=== PATIENT | female | born 1990 | race Hispanic/Latino ===

== ENCOUNTER → 2019-02-26 | Day surgery (SDC) | payer OTHER ==
[2019-02-24 11:44] LABS: ALANINE AMINOTRANSFERASE 12 IU/L (0-55); ALBUMIN 4.1 g/dL (3.5-5.0); ALBUMIN/GLOBULIN RATIO 1.2 (0.8-2.0); ALKALINE PHOSPHATASE 73 IU/L (40-150); ANION GAP 11.8 mmol/L (8-16); BLOOD UREA NITROGEN 14 mg/dL (7-26); BUN/CREATININE RATIO 20 (6-25); CALCIUM 9.6 mg/dL (8.4-10.2); CARBON DIOXIDE 28 mmol/L (22-29); CHLORIDE 103 mmol/L (98-107); CREATININE, SERUM 0.71 mg/dL (0.57-1.11); EST GLOMERULAR FILTRATION RATE > 60 ML/MIN (60-); GLUCOSE 87 mg/dL (74-118); POTASSIUM 3.8 mmol/L (3.5-5.1); SODIUM 139 mmol/L (136-145)
[~2019-02-26] MED LIST: ACETAMINOPHEN 1000 MG/100 ML IV ONE; BUPIVACAINE 0.5%/EPI 30 ML SDV INJ ONE; BUPIVACAINE HCL 0.5% INJ 30 ML VIAL INJ ONE; CEFAZOLIN SOD 1 GM/NS 50ML 100 ML IV ONE; DEXAMETHASONE SOD PHOS INJ 4 MG/ML VIAL ONE; EPHEDRINE SULFATE INJ 50 MG/ML VIAL ONE; FENTANYL CITRATE/PF 100MCG/2 ML INJ ONE; GLYCOPYRROLATE INJ 1MG/ 5 ML SYR ONE; HAIR, SKIN & N1 EAC1 PO; HYDROCODONE/APAP 7.5MG-325MG 1 EA TAB ONE; HYDROMORPHONE 2MG/ML 2 MG/ML ML ONE; IBUPROFEN200 MG PO; KETOROLAC TROMETHAMINE 30 MG/ML VIAL ONE; METOCLOPRAMIDE HCL 10 MG/2ML VIAL ONE; MIDAZOLAM HCL 2 MG/2 ML VIAL ONE; NEOSTIGMINE 5 MG/5ML SYR ONE; NORETHINDRONE0.35 MG PO; ONDANSETRON HCL INJ 2MG/ML 2ML 2 MG/ML VIAL ONE; PROMETHAZINE HCL (IM) 25 MG/ML VIAL ONE; PROPOFOL IV EMULSION 10 MG/ML 20 ML VIAL ONE; ROCURONIUM BROMIDE 10 MG/ML 5ML VIAL ONE; SEVOFLURANE INHAL SOLN 250 ML PEN BTL ONE; prenatal gummies PO
--- OUTSIDE RECORDS SUMMARY | 2019-02-26 06:03 | XMS REPORT ---
Author [facility] Address Unknown Phone Unavailable Care Team Providers Care Manager Adult Name Role Phone Unavailable Unavailable Payers Payer Name Policy Type Policy Number Effective Date Expiration Date Problems This patient has no known problems. Allergies, Adverse Reactions, Alerts Allergy Name Allergy Type Status Severity Reaction(s) Onset Date Inactive Date Treating Clinician Comments No Known Allergies DA Active U 2017-07-02 00:00:00 Medications This patient has no known medications. Results Test Description Test Time Test Comments Text Results Atomic Results Result Comments SURGICAL SPECIMENS 2018-11-18 07:56:00 RUN DATE: 11/18/18 [facility] *LIVE* PAGE 1 RUN TIME: 968 Specimen Inquiry RUN USER: INTERFACE PATIENT: YOAV BURNS LOC: G.LDU U #: [id number] AGE/SX: 28/F ROOM: RE11/14/18REG DR: Keke Chen MD : 90 BED: DIS: STATUS: PRE IN TLOC: SPEC #: [id number] RECD: 11/16/18 STATUS: SOUPadma REQ #: [id number] TERE: 11/16/18 [facility] DR: Keke Chen MD ENTERED: 11/17/18 SP TYPE: SURG SPEC OTHR DR: ORDERED: GM LEVEL 4 CODES: [id number] - PLACENTA, NOS PROCEDURES: GM LEVEL 4 (Incomplete) TISSUES: 1. PLACENTA, NOS - Placenta, 3rd trimester. FINAL DIAGNOSIS Placenta, 3rd trimester: Histologically mature holder placenta (497 g, 30th percentile for gestational age), meconium. GROSS AND MICROSCOPIC GROSS EXAMINATION: Received in formalin labeled placenta is a 497 g 15 x 13 x 3 cm placenta. The surface is bluegray with light green staining and tortuous vessels on the surface. Maternal surface is intact with adherent hemorrhage. The 29 cm in length 0.9 cm in diameter 3 vessel umbilical cord inserts eccentrically. The membranes are thickened and cloudy with green staining. The parenchyma is beefy red without identifiable lesions. SECTION CODE: (A) Membranes (B) umbilical cord (C)-(E) placental parenchyma. MICROSCOPIC EXAMINATION: Sections of the umbilical cord reveal three vessels without significant inflammation. The membranes are unremarkable. The surface of the placenta does not show a significant inflammatory infiltrate. Maturation is appropriate for gestational age. The underlying maternal decidua beneath the placenta contains a mixed inflammatory infiltrate. POST-OP DIAGNOSIS Meconium, delivered PRE-OP DIAGNOSIS Meconium CONTINUED ON NEXT PAGE RUN DATE: 11/18/18 [facility] *LIVE* PAGE 2 RUN TIME: 756 Specimen Inquiry RUN USER: INTERFACE SPEC #: [id number] PATIENT: YOAV BURNS #[id number] (Continued) - Signed SIGNATURE ON FILE Steven Cr DO 11/18/18 0756 END OF REPORT RAPID PLASMA REAGIN 2018-11-16 11:38:00 RAPID PLASMA REAGIN (test code=RPR) NONREACTIVE NONREACTIVE AG HEPATITIS B [id number] 11:38:00* Test Item Value Reference Range Comments AG HEPATITIS B SURFACE (test code=HBSAG) NON REACTIVE INDEX NonReactive AB HIV 1 11:38:00* Test Item Value Reference Range Comments AB HIV 1 2 (test code=QXI80YQ) NONREACTIVE INDEX NONREACTIVE CBC W/AUTO [id number] 09:04:00* Test Item Value Reference Range Comments WHITE BLOOD CELL (test code=WBC) 13.36 x10 3/uL 4.5-11.0 RED BLOOD CELL (test code=RBC) 2.82 x10 6/uL 3.54-5.02 HEMOGLOBIN (test code=HGB) 8.7 g/dL 11.0-15.0 HEMATOCRIT (test code=HCT) 25.3 % 33.0-45.0 MEAN CELL VOLUME (test code=MCV) 89.7 fL 81.0-99.0 MEAN CELL HGB (test code=MCH) 30.9 pg 27.0-33.0 MEAN CELL HGB CONCETRATION (test code=MCHC) 34.4 g/dL 33.0-37.0 RED CELL DISTRIBUTION WIDTH CV (test code=RDW) 13.3 % 11.5-14.5 RED CELL DISTRIBUTION WIDTH SD (test code=RDW-SD) 43.7 fL 37.0-54.0 PLATELET COUNT (test code=PLT) 221 x10 3/uL 150-400 MEAN PLATELET VOLUME (test code=MPV) 11.5 fL 7.0-9.0 NEUTROPHIL % (test code=NT%) 72.4 % 56.0-77.0 IMMATURE GRANULOCYTE % (test code=IG%) 0.6 % 0.0-2.0 LYMPHOCYTE % (test code=LY%) 18.0 % 14.0-32.0 MONOCYTE % (test code=MO%) 8.4 % 4.8-9.0 EOSINOPHIL % (test code=EO%) 0.4 % 0.3-3.7 BASOPHIL % (test code=BA%) 0.2 % 0.0-2.0 NUCLEATED RBC % (test code=NRBC%) 0.0 % 0-0 NEUTROPHIL # (test code=NT#) 9.67 x10 3/uL 2.0-7.6 IMMATURE GRANULOCYTE # (test code=IG#) 0.08 x10 3/uL 0.00-0.03 LYMPHOCYTE # (test code=LY#) 2.40 x10 3/uL 1.0-3.8 MONOCYTE # (test code=MO#) 1.12 x10 3/uL 0.1-0.8 EOSINOPHIL # (test code=EO#) 0.06 x10 3/uL 0.0-0.2 BASOPHIL # (test code=BA#) 0.03 x10 3/uL 0.0-0.2 NUCLEATED RBC # (test code=NRBC#) 0.00 x10 3/uL 0.0-0.1 MANUAL DIFF REQUIRED (test code=MDIFF) NO RAPID PLASMA [id number] 03:40:00* Test Item Value Reference Range Comments RAPID PLASMA REAGIN (test code=RPR) NONREACTIVE AG HEPATITIS B [id number] 03:40:00* Test Item Value Reference Range Comments AG HEPATITIS B SURFACE (test code=HBSAG) NON REACTIVE INDEX NonReactive AB HIV 1 03:40:00* Test Item Value Reference Range Comments AB HIV 1 2 (test code=[id number]) NONREACTIVE INDEX NONREACTIVE CORD ARTERIAL BLOOD [id number] 22:16:00* Test Item Value Reference Range Comments CORD BLOOD PH (test code=PH/C) 7.26 7.20-7.30 CORD BLOOD PCO2 (test code=PCO2/C) 57 MMHG 45-50 CORD BLOOD PO2 (test code=PO2/C) 15 mmHg 15-25 CORD BLOOD HCO3 (test code=HCO3/C) 25 mmol/L 15-25 BASE EXCESS CORD (test code=RACHEL/C) -2.0 mmol/L -5-5 O2 SATURATION (test code=O2S/C) 14 % 25-45 RAPID PLASMA [id number] 22:04:00* Test Item Value Reference Range Comments RAPID PLASMA REAGIN (test code=RPR) NONREACTIVE AG HEPATITIS B [id number] 22:04:00* Test Item Value Reference Range Comments AG HEPATITIS B SURFACE (test code=HBSAG) NON REACTIVE INDEX NonReactive AB HIV 1 22:04:00* Test Item Value Reference Range Comments AB HIV 1 2 (test code=MAL60FB) INDEX NONREACTIVE CBC W/AUTO [id number] 21:08:00* Test Item Value Reference Range Comments WHITE BLOOD CELL (test code=WBC) 11.41 x10 3/uL 4.5-11.0 RED BLOOD CELL (test code=RBC) 3.66 x10 6/uL 3.54-5.02 HEMOGLOBIN (test code=HGB) 11.1 g/dL 11.0-15.0 HEMATOCRIT (test code=HCT) 32.8 % 33.0-45.0 MEAN CELL VOLUME (test code=MCV) 89.6 fL 81.0-99.0 MEAN CELL HGB (test code=MCH) 30.3 pg 27.0-33.0 MEAN CELL HGB CONCETRATION (test code=MCHC) 33.8 g/dL 33.0-37.0 RED CELL DISTRIBUTION WIDTH CV (test code=RDW) 13.4 % 11.5-14.5 RED CELL DISTRIBUTION WIDTH SD (test code=RDW-SD) 44.1 fL 37.0-54.0 PLATELET COUNT (test code=PLT) 268 x10 3/uL 150-400 MEAN PLATELET VOLUME (test code=MPV) 11.5 fL 7.0-9.0 NEUTROPHIL % (test code=NT%) 58.0 % 56.0-77.0 IMMATURE GRANULOCYTE % (test code=IG%) 0.6 % 0.0-2.0 LYMPHOCYTE % (test code=LY%) 32.4 % 14.0-32.0 MONOCYTE % (test code=MO%) 7.3 % 4.8-9.0 EOSINOPHIL % (test code=EO%) 1.4 % 0.3-3.7 BASOPHIL % (test code=BA%) 0.3 % 0.0-2.0 NUCLEATED RBC % (test code=NRBC%) 0.0 % 0-0 NEUTROPHIL # (test code=NT#) 6.62 x10 3/uL 2.0-7.6 IMMATURE GRANULOCYTE # (test code=IG#) 0.07 x10 3/uL 0.00-0.03 LYMPHOCYTE # (test code=LY#) 3.70 x10 3/uL 1.0-3.8 MONOCYTE # (test code=MO#) 0.83 x10 3/uL 0.1-0.8 EOSINOPHIL # (test code=EO#) 0.16 x10 3/uL 0.0-0.2 BASOPHIL # (test code=BA#) 0.03 x10 3/uL 0.0-0.2 NUCLEATED RBC # (test code=NRBC#) 0.00 x10 3/uL 0.0-0.1 MANUAL DIFF REQUIRED (test code=MDIFF) NO
[2019-02-26 11:25] VITALS: BP 109/65
--- NOTE | 2019-02-26 15:15 | Operative Report ---
DATE OF PROCEDURE: SURGEON: Norma Brooks MD DIAGNOSIS: Gallstones with ongoing mild chronic cholecystitis. PROCEDURE PERFORMED: Laparoscopic cholecystectomy. REASON FOR ADMISSION: This is a white healthy 28-year-old female, who presented to dc with upper abdominal pain. The patient was diagnosed with biliary sludge and was counseled appropriately and then brought in electively for the surgery. INTRAOPERATIVE FINDINGS: Inflamed, thick-walled, and edematous gallbladder consistent with the ongoing inflammation. PROCEDURE IN DETAIL: The patient was identified in the preoperative holding area and brought to the operating room. After induction of general anesthesia, the abdomen was prepped and draped in a standard sterile fashion. I began by making 1 cm infraumbilical incision, Veress needle was inserted through this and after confirmation of correct intraperitoneal placement, pneumoperitoneum was established at 15 mmHg using CO2 gas. A 12 mm port was then placed intraperitoneally through which a 10 mm angled laparoscope was introduced and intra-abdominal contents were visualized and findings as above were noted. There was no acute intra-abdominal injury noted with my port placement. A second port, this time a 5 mm one was placed in the subxiphoid area in the midline under direct vision and two additional 5 mm ports were placed in the right subcostal area also under direct vision. The gallbladder was distended and inflamed, this was grasped carefully at its fundus to retract it anteriorly and superiorly over the liver edge, simultaneously it was also grasped close to the neck of the gallbladder to retract it laterally to expose the region of the neck of the gallbladder and the triangle of Calot, this also helped to pull out the cystic duct in a perpendicular fashion from the common hepatic and the common bile duct. The peritoneum over this area was carefully taken down using the [place] dissector and with a combination of blunt and sharp dissection. The cystic duct and the adjacent cystic artery were clearly identified and carefully skeletonized. The posterior peritoneum was also taken down and after obtaining the critical view of safety, the cystic duct and cystic artery were triply clipped and then transected leaving two clips on the patient's side on each of these two structures. The gallbladder was then removed from the gallbladder fossa using electrocautery. After this was done, Endo Catch bag used to retrieve the gallbladder from the peritoneal cavity. The liver bed was carefully inspected and no active bleeding was noted. The area was then carefully irrigated with about 1 liter of normal saline. Mike device was used to place a single stitch of #1 Vicryl at the umbilical port site. All ports were then removed under direct vision removing the subxiphoid port last. Pneumoperitoneum was then deflated, the fascial suture was ligated and the skin all the port sites was closed with 4-0 Monocryl taking subcuticular stitches. The area was then carefully cleaned and dried and Dermabond was applied over all four incisions. The patient was then extubated and was taken to the recovery unit in a stable condition. Sponge, needle, and instrument count correct at the end of the procedure. There were no intraoperative complications and intraoperative blood loss was minimal. MD AIXA De Souza/FREDDIE /[id number]
== END | disposition home or self-care (01) ==
LOC: OR 06:00
PROVIDERS: ATTEND Surgery
DX: K80.10 Calculus of gallbladder with chronic cholecystitis without obstruction (principal); N20.0 Calculus of kidney; K21.9 Gastro-esophageal reflux disease without esophagitis; Z01.812 Encounter for preprocedural laboratory examination
CPT/HCPCS: 36415; 47562; 80053; 81025; 88304; J0131; J0690; J1100; J1170; J1885; J2250; J2405; J2550; J2704; J2765; J3010; J3490

== ENCOUNTER 2019-02-28 20:17 | Emergency (ER) | payer OTHER ==
[~2019-02-28] VITALS: Ht 154.9 cm; Wt 65.8 kg
[~2019-02-28 20:17] MED LIST changes: -ACETAMINOPHEN 1000 MG/100 ML IV ONE; -BUPIVACAINE 0.5%/EPI 30 ML SDV INJ ONE; -BUPIVACAINE HCL 0.5% INJ 30 ML VIAL INJ ONE; -CEFAZOLIN SOD 1 GM/NS 50ML 100 ML IV ONE; -DEXAMETHASONE SOD PHOS INJ 4 MG/ML VIAL ONE; -EPHEDRINE SULFATE INJ 50 MG/ML VIAL ONE; -FENTANYL CITRATE/PF 100MCG/2 ML INJ ONE; -GLYCOPYRROLATE INJ 1MG/ 5 ML SYR ONE; -HYDROCODONE/APAP 7.5MG-325MG 1 EA TAB ONE; -HYDROMORPHONE 2MG/ML 2 MG/ML ML ONE; -KETOROLAC TROMETHAMINE 30 MG/ML VIAL ONE; -METOCLOPRAMIDE HCL 10 MG/2ML VIAL ONE; -MIDAZOLAM HCL 2 MG/2 ML VIAL ONE; -NEOSTIGMINE 5 MG/5ML SYR ONE; -ONDANSETRON HCL INJ 2MG/ML 2ML 2 MG/ML VIAL ONE; -PROMETHAZINE HCL (IM) 25 MG/ML VIAL ONE; -PROPOFOL IV EMULSION 10 MG/ML 20 ML VIAL ONE; -ROCURONIUM BROMIDE 10 MG/ML 5ML VIAL ONE; -SEVOFLURANE INHAL SOLN 250 ML PEN BTL ONE
[2019-02-28] MEDS ORDERED: KETOROLAC TROMETHAMINE 30 MG/ML VIAL IV STA (20:23)
[2019-02-28] MEDS ORDERED: KETOROLAC TROMETHAMINE 30 MG/ML VIAL ONE (20:38)
[2019-02-28 20:44] LABS: BASOPHILS % 0.3 % (0.0-1.0); EOSINOPHILS # (AUTO) 0.3 (0.0-0.4); EOSINOPHILS % 2.5 % (0.0-6.0); HEMATOCRIT 39.4 % (34.2-44.1); HEMOGLOBIN 13.4 g/dL (12.0-16.0); LYMPHOCYTES # (AUTO) 3.1 (1.0-3.2); LYMPHOCYTES % 26.6 % (18.0-39.1); MEAN CORPUSCULAR HEMOGLOBIN 29.5 pg (28-32); MEAN CORPUSCULAR VOLUME 86.8 fL (81-99); MONOCYTES # (AUTO) 0.8 (0.2-0.8); MONOCYTES % 6.5 % (4.4-11.3); NEUTROPHILS # (AUTO) 7.5 (2.1-6.9); NEUTROPHILS % 63.8 % (38.7-80.0); PLATELET COUNT 342 x10e3/uL (140-360); RED BLOOD COUNT 4.54 x10e6/uL (3.6-5.1)
[2019-02-28 20:56] LABS: INR 0.98; PROTHROMBIN TIME 13.5 seconds (11.9-14.5)
[2019-02-28 20:57] LABS: ALANINE AMINOTRANSFERASE 20 IU/L (0-55); ALBUMIN 4.5 g/dL (3.5-5.0); ALBUMIN/GLOBULIN RATIO 1.3 (0.8-2.0); ALKALINE PHOSPHATASE 85 IU/L (40-150); ANION GAP 16.8 mmol/L (8-16); BLOOD UREA NITROGEN 9 mg/dL (7-26); BUN/CREATININE RATIO 11 (6-25); CARBON DIOXIDE 25 mmol/L (22-29); CHLORIDE 102 mmol/L (98-107); CREATINE KINASE 59 IU/L (29-168); CREATININE, SERUM 0.79 mg/dL (0.57-1.11); EST GLOMERULAR FILTRATION RATE > 60 ML/MIN (60-); GLUCOSE 100 mg/dL (74-118); PARTIAL THROMBOPLASTIN TIME 34.9 seconds (23.8-35.5); POTASSIUM 3.8 mmol/L (3.5-5.1); SODIUM 140 mmol/L (136-145)
[2019-02-28 20:58] LABS: AMYLASE 62 U/L (25-125); LIPASE 32 U/L (8-78)
--- NOTE | 2019-02-28 21:32 | Diagnostic Imaging Report ---
EXAM: Chest and abdomen radiographs 4 views INDICATION: left chest pain s/p cholecystectomy COMPARISON: None FINDINGS: Trace air under the right hemidiaphragm. Lungs well aerated. Linear opacity in the left lower lobe. No consolidations. No pneumothorax. No pleural effusion. Normal cardiomediastinal silhouette size. Normal stool in the colon. No dilated loops of small bowel. No renal calculi. No abnormal soft tissue masses. Bones and soft tissues are unremarkable. Surgical changes in the right upper quadrant of cholecystectomy. IMPRESSION: Trace pneumoperitoneum is expected in the setting of cholecystectomy 2 days ago. Linear/subsegmental atelectasis in the left lower lobe. Signed by: Ronn Bhandari DO on 02/28/2019 9:28 PM
[2019-02-28 21:44] LABS: BILIRUBIN,URINE NEGATIVE (NEGATIVE); COLOR,URINE YELLOW (YELLOW); KETONES,URINE 1+ (NEGATIVE); LEUKOCYTE ESTERASE ,URINE NEGATIVE (NEGATIVE); NITRITE,URINE NEGATIVE (NEGATIVE); PROTEIN,URINE DIPSTICK NEGATIVE (NEGATIVE); URINE UROBILINOGEN 0.2 mg/dL (0.2 - 1)
[2019-02-28 21:45] LABS: CLARITY,URINE HAZY (CLEAR)
[2019-02-28] MEDS ORDERED: IOPAMIDOL 370 MG/ML 200 ML INFUS..BTL INJ ONE (21:50)
[2019-02-28] MEDS ORDERED: SODIUM CHLORIDE 0.9% 50ML 50 ML ONE (21:50)
[2019-02-28 22:29] LABS: BACTERIA,URINE MODERATE /HPF; EPITHELIAL CELLS,URINE MODERATE /LPF
--- NOTE | 2019-03-01 00:06 | Diagnostic Imaging Report ---
EXAM: CT Chest WITH contrast (pulmonary embolism protocol) 02/28/2019 9:35 PM INDICATION: Chest pain, positive d-dimer COMPARISON: None TECHNIQUE: Chest was scanned utilizing a multidetector helical scanner from the lung apex through the level of the adrenal glands without administration of IV contrast. Coronal and sagittal reformations were obtained. Pulmonary embolism protocol was performed. IV CONTRAST: 100 mL of Isovue 370 COMPLICATIONS: None RADIATION DOSE: Total DLP: 380 mGy*cm Estimated effective dose: (DLP x 0.014 x size factor) mSv CTDIvol has been reviewed. It is below the limits set by the Radiation Protocol Committee (RPC). Dose modulation, iterative reconstruction, and/or weight based adjustment of the mA/kV was utilized to reduce the radiation dose to as low as reasonably achievable. FINDINGS: LINES/ TUBES: None. LUNGS AND AIRWAYS: Mild bibasilar atelectasis. Airways are normal. The pulmonary arteries are patent to the subsegmental level. PLEURA: The pleural spaces are clear. HEART AND MEDIASTINUM: The thyroid gland is normal. No mediastinal, hilar or axillary lymphadenopathy. The heart is normal in size. There is no pericardial effusion. The main pulmonary artery is nondilated. UPPER ABDOMEN: Trace pneumoperitoneum under the right hemidiaphragm is consistent with history of cholecystectomy.. BONES: The visualized bony thorax is within normal limits. SOFT TISSUES: Unremarkable. IMPRESSION: No pulmonary embolism. Mild bibasilar atelectasis. Trace pneumoperitoneum under the right hemidiaphragm is consistent with history of cholecystectomy. Signed by: Ronn Bhandari DO on 03/01/2019 12:02 AM
[2019-03-01 00:31] VITALS: BP 106/89
== END 2019-03-01 00:55 | disposition home or self-care (01) ==
LOC: ER 20:17
DX: R09.1 Pleurisy (principal)
CPT/HCPCS: 36415; 71260; 74022; 80053; 81001; 82150; 82550; 82553; 83690; 84484; 85025; 85379; 85610; 85730; 93005; 96374; 99284; J1885; Q9967